=== PATIENT | female | born 1955 ===

== ENCOUNTER 2021-04-09 10:48 | Outpatient (CLI) | payer OTHER ==
--- NOTE | 2021-04-22 17:13 | Mammography Report ---
DIGITAL SCREENING MAMMOGRAM WITH CAD, 04/09/2021 CLINICAL INFORMATION / INDICATION: Routine screening mammography. TECHNIQUE: Digital bilateral 2D mammography was obtained in the craniocaudal and mediolateral obliqu e projections. This examination was interpreted with the benefit of Computer-Aided Detection analysis . COMPARISON: Prior mammogram 11/19/2016 FINDINGS: Statements: The positioning of the left MLO is slightly suboptimal. The technologist states that the patient declined a repeat view. Breast Density: There are scattered areas of fibroglandular density. No dominant mass, suspicious calcifications, or architectural distortion in either breast. There has been no significant change compared with the prior examination. IMPRESSION: No mammographic evidence of malignancy. Follow up recommendation: Routine yearly BI-RADS Category 1: Negative. A "normal" or negative report should not discourage follow up or biopsy of a clinically significant f inding. A written summary of these findings will be mailed to the patient. The patient will be entered into a mammography reporting system which will generate a reminder letter for the patient's next appointmen t at the appropriate interval. The [employer] recommends yearly mammograms starting at age 40 and continuing as l jenna as a woman is in good health. Breast MRI is recommended for women with an approximate 20-25% or greater lifetime risk of breast cancer, including women with a strong family history of breast or ova sophie cancer or who have been treated for Hodgkin's disease. Signer Name: Merari Shell MD Signed: 04/22/2021 5:08 PM Workstation Name: [id number]
== END 2021-04-09 10:49 | disposition home or self-care (01) ==
LOC: MAMMO 10:48
PROVIDERS: ATTEND Family Medicine
DX: Z12.31 Encounter for screening mammogram for malignant neoplasm of breast (principal)
CPT/HCPCS: 77067